=== PATIENT | male | born 1945 | race Caucasian/White ===

== ENCOUNTER 2016-07-29 07:09 | Day surgery (SDC) | payer OTHER, BC ==
[2016-07-29] MEDS ORDERED: LR 1,000 ML IV ONE (08:13)
[2016-07-29] MEDS ORDERED: LIDOCAINE 1% 5 ML SDV ID PRN (08:13)
[2016-07-29 08:31] LABS: CALCIUM 10.1 mg/dL (8.5-10.4); CARBON DIOXIDE 21 mEq/l (22-31); CHLORIDE 108 mEq/L (97-110); CREATININE 1.2 mg/dL (0.7-1.3); GLOMERULAR FILTRATION RATE > 60; GLUCOSE 169 mg/dL (70-100); SODIUM 140 mEq/L (134-144)
[2016-07-29 08:45] LABS: ANION GAP 11 mEq/L (8-16)
[2016-07-29 08:47] LABS: POTASSIUM 4.2 mEq/L (3.5-5.2)
[2016-07-29] MEDS ORDERED: INSULIN REGULAR HUMAN 100 UNIT/ML ONE (09:05)
[2016-07-29] MEDS ORDERED: METOPROLOL TARTRATE 5 MG/5 ML INJ ONE (09:05)
[2016-07-29] MEDS ORDERED: PROPOFOL/EMULSION 500 MG/50 ML BOTTLE IV ONE (09:18)
[2016-07-29] MEDS ORDERED: LIDOCAINE 2% 5 ML SDV ONE (09:18)
[2016-07-29] MEDS ORDERED: INSULIN REGULAR HUMAN 100 UNIT/ML SC ONE (09:30)
[2016-07-29] MEDS ORDERED: METOPROLOL TARTRATE 5 MG/5 ML INJ IVP ONE (09:30)
--- NOTE | 2016-07-29 10:06 | GPN ---
[f rep st] PROCEDURE NOTE PROCEDURE: Colonoscopy. INDICATION: Surveillance of colon polyps. MEDICATIONS USED: Anesthesia was administered by anesthesia colleagues. This was deemed necessary due to the patient's comorbid illness and previous poor tolerance to conscious sedation. ACUTE COMPLICATIONS: None. DESCRIPTION OF PROCEDURE: After informed consent was obtained, the patient was placed in the left lateral decubitus position and the forward viewing colonoscope was advanced through the rectum into the cecum. The cecum was identified by the appendiceal orifice and the ileocecal valve. Retroflex views in the rectum were obtained. FINDINGS: 1. Small 5-6 mm polyp was identified in the cecum. This was removed with cold biopsy forceps. 2. A 7-8 mm polyp was identified in the transverse colon. This was removed with cold snare polypectomy. 3. The patient had small internal hemorrhoids. 4. The remainder of the exam was normal. IMPRESSION AND RECOMMENDATIONS: The patient had 2 polyps discovered today. They were both removed endoscopically. Given these polyps, and his prior history of complicated polyps, and family hx of polyps, we will recommend he undergo a surveillance colonoscopy in 3 years. My office will call him with the results of his pathology, in order to plan his subsequent surveillance. /[id number]/MODL MTDD
== END 2016-07-29 11:00 | disposition home or self-care (01) ==
LOC: FSGY 07:09
PROVIDERS: ATTEND Internal Medicine Gastroenterology
DX: D12.0 Benign neoplasm of cecum (principal); D12.3 Benign neoplasm of transverse colon; K64.8 Other hemorrhoids; I69.352 Hemiplegia and hemiparesis following cerebral infarction affecting left dominant side; E11.9 Type 2 diabetes mellitus without complications; E66.9 Obesity, unspecified; Z79.84 Long term (current) use of oral hypoglycemic drugs; Z79.82 Long term (current) use of aspirin; Z68.33 Body mass index [BMI] 33.0-33.9, adult; Z86.010 Personal history of colon polyps
CPT/HCPCS: J1815; J2704